=== PATIENT | female | born 1950 | race Caucasian/White ===

== ENCOUNTER 2019-01-03 20:27 | Inpatient (IN) | payer MEDICAID ==
[~2019-01-03] VITALS: Ht 157.5 cm; Wt 75.2 kg
[2019-01-03] MEDS ORDERED: SOD CHLORIDE 0.9% 1,000 ML IV STA (20:55)
[2019-01-03] MEDS ORDERED: ASPIRIN 325 MG TAB PO STA (20:55)
--- NOTE | 2019-01-03 21:00 | ERD ---
ER Documentation Chief Complaint Chief Complaint SLURRED SPEECH, LEFT LEG NUMBNESS/PAIN X'S 13 HOURS HPI This is a 68-year-old female here with strokelike symptoms. She said that she went to bed at midnight last night and that between the hours of midnight and 5 AM she kept feeling like she could not roll over in bed because her left side was not working correctly she said it felt weak and tingling. She said she tried to go to the bathroom around 6:30 AM and noticed the left side of her body felt heavy and she was dragging her left leg. She stayed in bed all day and did not tell her family about the symptoms. About 2 hours ago family noticed she was slurring her speech, however, she was not slurring throughout the day. Currently, the slurring is gone. She has no headache. She is complaining of left face tingling and left arm and leg tingling as well as weakness on the left side ROS All systems reviewed and are negative except as per history of present illness. FmHx Family History: No coronary disease Physical Exam Vitals Vital Signs Date Temp Pulse Resp B/P (MAP) Pulse Ox O2 O2 Flow FiO2 Time Delivery Rate 01/03/19 97.0 92 18 147/61 96 20:36 (89) Physical Exam Const: Well-developed, well-nourished Head: Atraumatic, normocephalic Eyes: Normal Conjunctiva, PERRLA, EOMI, normal sclera, no nystagmus ENT: Normal External Ears, Nose and Mouth, moist mucus membranes. Neck: Full range of motion. No meningismus, no lymphadenopathy. Resp: Clear to auscultation bilaterally, no wheezing, rhonchi, rales Cardio: Regular rate and rhythm, no murmurs, S1 S2 present Abd: Soft, non tender x 4, non distended. Normal bowel sounds, no guarding or rebound, no pulsitile abdominal masses or bruits Skin: No petechiae or rashes, no ecchymosis , no maculopapular rash Back: No midline or flank tenderness Ext: No cyanosis, or edema, FROM x 4, normal inspection, neurovascularly intact x 4 Neur: Awake and alert, STR 5/5 x 2, sensation intact x 2, left lower extremity strength is 3 out of 5 left upper extremity strength is 3 out of 5 Psych: Normal Mood and Affect Results 24 hrs Laboratory Tests Test 01/03/19 20:44 01/03/19 20:47 Bedside Glucose 268 mg/dL White Blood Count Pending Red Blood Count Pending Hemoglobin Pending Hematocrit Pending Mean Corpuscular Volume Pending Mean Corpuscular Hemoglobin Pending Mean Corpuscular Hemoglobin Concent Pending Red Cell Distribution Width Pending Platelet Count Pending Mean Platelet Volume Pending Current Medications Medications Dose Sig/Jessee Start Time Status Last (Trade) Ordered Route PRN Stop Time Admin Dose Reason Admin Sodium 1,000 ml @ Q1H STAT 01/03/19 DC 01/03/19 Chloride 1,000 mls/hr IV 20:55 21:06 01/03/19 21:54 Aspirin 325 mg ONCE STAT 01/03/19 DC 01/03/19 (Aspirin) PO 20:55 21:06 01/03/19 20:58 Procedures/MDM EKG: Rate/Rhythm: S rhythm with occasional PVCs, left axis deviation QRS, ST, QT: NORMAL [place], QRS, QT] Impression: Abnormal EKG Ordering MD: STEPHANIE JARRETT DO Location: E/R Room/Bed: PROCEDURE: CT Brain without contrast. CLINICAL INDICATION: Stroke. Altered level of consciousness. TECHNIQUE: A CT of the brain was performed on a multidetector CT scanner utilizing axial imaging from the skull base through the vertex without IV contrast. Multiplanar reformatted images were made. Images were reviewed on a PACS workstation. The CTDIvol is 30 no mGy and the DLP is the 634 mGycm. DICOM images are available. One or more of the following dose reduction techniques were utilized: 1.) Automated exposure control 2.) Adjustment of the mA +/- kV according to patient's size 3.) Use of iterative reconstruction technique. COMPARISON: None FINDINGS: There is moderate diffuse cerebral volume loss with sulcal and ventricular dilatation. No discrete extra-axial fluid collection or masses seen. Ventricles are in the midline and of normal configuration. There is periventricular white matter disease in both cerebral hemispheres with no associated mass effect. Noted is a chronic infarct in the right paracentral polyps. There is a chronic infarct enveloping the left putamen and external capsule extending into the left frontal periventricular white matter. Noted is an ill-defined region of attenuation involving marquez and subcortical white matter of the inferomedial right frontal lobe. This is compatible with an infarct of unknown chronicity. No other intra-axial masses or regions of abnormal attenuation are seen. There is no intracranial hemorrhage. There is minimal mucoperiosteal thickening in the sphenoid sinus. IMPRESSION: Atrophy. White matter disease compatible with chronic small vessel ischemia. Chronic infarcts right paracentral susu, left basal ganglia and external capsule. Infarct inferomedial right frontal lobe involving marquez and subcortical white matter of unknown chronicity. MRI with diffusion weighting could be performed to rule out acute infarct if clinically indicated. .Colton Lee MD, MD Date Time Electronically viewed and signed by .Colton Lee MD, MD on 01/03/2019 21:43 .A/ CC: STEPHANIE JARRETT DO [id number] Patient: SEBASTIAN FINE : 1950 Age: 68 Sex: F MR #: [id number] DOS: 01/03/192054 Ordering MD: STEPHANIE JARRETT DO Location: E/R Room/Bed: PROCEDURE: XR Chest. CLINICAL INDICATION: Patient experiencing possible Stroke TECHNIQUE: Single frontal view of the chest was obtained. COMPARISON: None available FINDINGS: The cardiomediastinal silhouette is normal size. Pulmonary vasculature is within normal limits. The lungs are clear. There is mild to moderate aortic calcification. No signs of pleural fluid or pneumothorax are seen. The osseous structures and soft tissues are unremarkable. IMPRESSION: No evidence for active cardiopulmonary disease. Mild to moderate aortic calcification. RPTAT: HBST .Joshua Schwartz MD, Date Time Electronically viewed and signed by .Joshua Schwartz MD, MD on 01/03/2019 21:49 .T/ CC: STEPHANIE JARRETT DO [id number] Patient has had a stroke and is not a TPA candidate because she is very far outside the window for TPA. Will admit the patient to panel for MRI in the morning for the workup the patient is clinically and hemodynamically stable Departure Diagnosis: Primary Impression: CVA (cerebral vascular accident) CVA mechanism: unspecified Qualified Codes: I63.9 - Cerebral infarction, unspecified Condition: Stable STEPHANIE JARRETT DO Jan 03, 2019 21:00
[2019-01-03] MEDS ORDERED: SOD CHLORIDE 0.9% 1,000 ML IV SCH (22:17)
[2019-01-03] MEDS ORDERED: ONDANSETRON 4 MG INJ IV PRN (22:30)
[2019-01-03] MEDS ORDERED: ACETAMINOPHEN 325 MG TAB PO PRN (22:30)
[2019-01-03 23:21] VITALS: PULSE 79
[2019-01-03] MEDS ORDERED: HYDROCODONE/APAP (5/325) TAB PO PRN (23:30)
[2019-01-03] MEDS ORDERED: NACL 0.9% 3 ML SYG IV SCH (23:30)
[2019-01-03] MEDS ORDERED: GLUCOSE GEL 15 GRAM TUBE BUCCAL PRN (23:45)
[2019-01-03] MEDS ORDERED: DEXTROSE 50% 50 ML SYRINGE IV PRN ×2 (23:45)
[2019-01-03] MEDS ORDERED: GLUCOSE GEL 15 GRAM TUBE PO PRN ×2 (23:45)
[2019-01-03] MEDS ORDERED: GLUCAGON 1 MG INJ IM PRN (23:45)
[2019-01-04] VITALS (12 sets, daily range): BP systolic 160–186; BP diastolic 70–81; PULSE 54–75; RESP 17–19; Ht 157.5 cm; Wt 75.2 kg
--- NOTE | 2019-01-04 00:20 | HP ---
Date/Time of Note Date/Time of Note DATE: 01/04/19 TIME: 00:14 Assessment/Plan VTE Prophylaxis Pharmacological prophylaxis: heparin Lines/Catheters IV Catheter Type (from Nrs): Saline Lock Assessment/Plan Hospital Course This is a 68-year-old female with a history of diabetes and tobacco use disorder who presents with left upper extremity and left lower extremity weakness which have now resolved. Symptoms are concerning for stroke/TIA -Will obtain MRI of the brain as well as carotid ultrasounds -Obtain echocardiogram -Consult neurology in the morning - Aspirin, statin - Head CT shows evidence of prior infarcts Diabetes type 2: -Basal bolus insulin Tobacco use disorder: -Counseled on cessation Result Diagram: 01/03/19204601/03/192046 Results 24hrs Laboratory Tests Test 01/03/19 20:44 01/03/19 20:47 Bedside Glucose 268 H White Blood Count 9.0 Red Blood Count 5.10 Hemoglobin 14.5 Hematocrit 44.9 Mean Corpuscular Volume 88.0 Mean Corpuscular Hemoglobin 28.4 L Mean Corpuscular Hemoglobin Concent 32.3 Red Cell Distribution Width 12.9 Platelet Count 261 Mean Platelet Volume 11.7 H Immature Granulocytes % 0.400 Neutrophils % 67.0 Lymphocytes % 21.5 Monocytes % 8.2 Eosinophils % 2.3 Basophils % 0.6 Nucleated Red Blood Cells % 0.0 Immature Granulocytes # 0.040 H Neutrophils # 6.0 Lymphocytes # 1.9 Monocytes # 0.7 Eosinophils # 0.2 Basophils # 0.1 Nucleated Red Blood Cells # 0.0 Prothrombin Time 12.3 Prothrombin Time Ratio 1.0 INR International Normalized Ratio 0.90 Activated Partial Thromboplast Time 24.3 Sodium Level 141 Potassium Level 3.9 Chloride Level 104 Carbon Dioxide Level 31 Anion Gap 6 Blood Urea Nitrogen 15 Creatinine 0.70 Est Glomerular Filtrat Rate mL/min > 60 Glucose Level 241 H Hemoglobin A1c 7.9 H Calcium Level 9.7 Total Bilirubin 0.0 L Direct Bilirubin 0.00 Indirect Bilirubin 0.0 Aspartate Amino Transf (AST/SGOT) 31 Alanine Aminotransferase (ALT/SGPT) 34 Alkaline Phosphatase 104 Troponin I < 0.012 Total Protein 7.4 Albumin 4.0 Globulin 3.40 H Albumin/Globulin Ratio 1.17 Triglycerides Level 198 H Cholesterol Level 170 LDL Cholesterol, Calculated 87 HDL Cholesterol 43 Cholesterol/HDL Ratio 3.9 HPI/ROS Admit Date/Time Admit Date/Time Jan 03, 2019 at 22:18 Hx of Present Illness 68 yo female with h/o heavy tobacco use, diabetes, hypertension who presents with L sided weakness Patient was in usual state of health until today. She says about 6 AM she lost the ability to move her left arm and left leg. Her leg was tremulous and shaky she said. She was unable to walk. She did not seek care and apparently did not tell her family about the symptoms. Her's son at bedside says that when he found her he noticed that her speech was slurring. Left arm and left leg still unable to move. Brought to the ER where she was outside of the stroke window. By the time I saw her she says that her symptoms have now resolved. She is now able to fully move her left arm and left leg and has no residual deficits PMH/Family/Social Past Medical History Medical History: diabetes Medications Current Medications Sodium Chloride 1,000 ml @ 80 mls/hr [id number] IV ; Start 01/03/19 at 22:17; Stop 01/04/19 at 10:46 Ondansetron HCl (Zofran Inj) 4 mg ER BRIDGE PRN IV NAUSEA/VOMITING; Start 01/03/19 at 22:30; Stop 01/04/19 at 22:29 Acetaminophen (Tylenol Tab) 650 mg ER BRIDGE PRN PO .MILD PAIN 1-3 OR TEMP; Start 01/03/19 at 22:30; Stop 01/04/19 at 22:29 IV Flush (NS 3 ml) 3 ml PER PROTOCOL IV ; Start 01/03/19 at 23:30 Acetaminophen/ Hydrocodone Bitart ([place] (5/325)) 2 tab Q6H PRN PO .SEVERE PAIN 7-10; Start 01/03/19 at 23:30 Enoxaparin Sodium (Lovenox) 30 mg DAILY SC ; Start 01/04/19 at 09:00 Diagnostic Test (Pha) (Accu-Chek) 1 XX ; Start 01/04/19 at 02:00 Insulin Glargine (Lantus) 16 units DAILY@2000 SC ; Start 01/04/19 at 20:00 Insulin Aspart (Novolog Insulin Pen) 4 unit WITH MEALS SC ; Start 01/04/19 at 07:55 Insulin Aspart (Novolog Insulin Pen) NOVOLOG *MILD* ALGORITHM WITH MEALS BEDTIME SC ; Start 01/04/19 at 07:55 Miscellaneous Information 1 ea NOTE XX ; Start 01/03/19 at 23:45 Glucose (Glutose) 15 gm Q15M PRN PO DECREASED GLUCOSE; Start 01/03/19 at 23:45 Glucose (Glutose) 22.5 gm Q15M PRN PO DECREASED GLUCOSE; Start 01/03/19 at 23:45 Dextrose (D50w Syringe) 25 ml Q15M PRN IV DECREASED GLUCOSE; Start 01/03/19 at 23:45 Dextrose (D50w Syringe) 50 ml Q15M PRN IV DECREASED GLUCOSE; Start 01/03/19 at 23:45 Glucagon (Glucagen) 1 mg Q15M PRN IM DECREASED GLUCOSE; Start 01/03/19 at 23:45 Glucose (Glutose) 15 gm Q15M PRN BUCCAL DECREASED GLUCOSE; Start 01/03/19 at 23:45 Coded Allergies: No Known Allergy (Unverified , 01/03/19) Past Surgical History Past Surgical Hx: no surgical history Family History Significant Family History: no pertinent family hx Social History Alcohol Use: none Smoking Status: Current every day smoker Drug Use: none Exam/Review of Systems Vital Signs Vitals Vital Signs Date Temp Pulse Resp B/P (MAP) Pulse Ox O2 O2 Flow FiO2 Time Delivery Rate 01/04/19 75 00:00 01/03/19 97.5 22 163/71 98 Room Air 23:03 (101) EKG: Normal sinus rhythm with LVH Exam Exam Alert and oriented Cranial nerves II through XII intact Strength intact throughout Sensation intact throughout Regular rate and rhythm Breathing comfortably Extremities warm without edema FABIAN DSOUZA MD Jan 04, 2019 00:20
[2019-01-04] MEDS: ACCU-CHEK XX SCH (03:11)
[2019-01-04] MEDS: INSULIN ASPART [NOVOLOG] 3 ML PEN SC SCH ×7 (08:12→21:30)
[2019-01-04] MEDS: ASPIRIN 81 MG TAB PO SCH (08:13)
[2019-01-04] MEDS: ENOXAPARIN 30 MG/0.3 ML SYG SC SCH (08:13)
--- NOTE | 2019-01-04 14:21 | PN ---
Date/Time of Note Date/Time of Note DATE: 01/04/19 TIME: 14:20 Assessment/Plan VTE Prophylaxis Risk score (from Nsg)>0 risk: 4 SCD applied (from Nsg): Yes Pharmacological prophylaxis: LMWH Lines/Catheters IV Catheter Type (from Nrsg): Saline Lock Urinary Cath still in place: No Assessment/Plan Hospital Course SUBJECTIVE: Denies any headache. OBJECTIVE: Physical Exam General: Adequately build 68 year-old female lying in bed in no apparent distress. HEENT: Normocephalic, atraumatic. Eyes: Anicteric sclerae, conjunctivae clear. ENT: Nasal septum midline, oral mucosa moist. Neck supple, no JVD noticed. Respiratory: Bilaterally clear breath sounds. No use of accessory muscles of respiration. No adventitious breath sounds. Cardiovascular: S1, S2 heard. Regular rate and rhythm. Abdomen: Soft, nontender, and nondistended. Bowel sounds positive in all 4 quadrants. Genitourinary: Deferred. Extremities: No cyanosis, no clubbing, no edema. Peripheral pulses palpable. Neurologic: The patient is awake, alert, and oriented. Skin: Normal skin turgor. No skin rashes. Labs & Vitals per chart ASSESSMENT & PLAN 68 year old female with comorbidities including HTN, type II DM, and nicotine use who came to the ER with chief complaint of slurred speech and left leg numbness and was admitted to inpatient setting for further treatment and eval uation. 1. Acute/early subacute right [place] non hemorrhagic ischemic infarct in the anterior medial frontal lobe. -Continue aspirin and statins. -PT/OT/ST evaluation. -Being followed by neurology. 2. Hypertension. -Continue antihypertensives. 3. DM type 2. .-Continue SSI with premeal and basal insulin. -HgB A1C 7.9. 4. Dyslipidemia. -Continue statins. 5. Nicotine use. -Cessation will be advised. 6. Fluids, electrolytes, and nutrition. -Low carbohydrate diet. 7. DVT prophylaxis. -Subcutaneous Lovenox. 8. Plan. -Continue aspirin and statins -Continue physical therapy and occupational therapy. The patient was seen in collaboration with Dr. Barrett. Result Diagram: 01/04/19 0551 01/04/19 0551 Results 24hrs Laboratory Tests Test 01/03/19 20:44 01/03/19 20:47 01/04/19 03:45 01/04/19 05:51 Bedside Glucose 268 H 214 White Blood Count 9.0 7.7 Red Blood Count 5.10 4.44 Hemoglobin 14.5 12.7 Hematocrit 44.9 39.5 Mean Corpuscular 88.0 89.0 Volume Mean Corpuscular 28.4 L 28.6 L Hemoglobin Mean Corpuscular 32.3 32.2 Hemoglobin Concent Red Cell 12.9 12.8 Distribution Width Platelet Count 261 216 Mean Platelet Volume 11.7 H 11.3 H Immature 0.400 0.300 Granulocytes % Neutrophils % 67.0 58.2 Lymphocytes % 21.5 27.4 Monocytes % 8.2 9.7 Eosinophils % 2.3 3.8 Basophils % 0.6 0.6 Nucleated Red Blood 0.0 0.0 Cells % Immature 0.040 H 0.020 Granulocytes # Neutrophils # 6.0 4.5 Lymphocytes # 1.9 2.1 Monocytes # 0.7 0.8 Eosinophils # 0.2 0.3 Basophils # 0.1 0.1 Nucleated Red Blood 0.0 0.0 Cells # Prothrombin Time 12.3 Prothrombin Time 1.0 Ratio INR International 0.90 Normalized Ratio Activated 24.3 Partial Thromboplast Time Sodium Level 141 140 Potassium Level 3.9 3.8 Chloride Level 104 103 Carbon Dioxide Level 31 24 Anion Gap 6 13 # Blood Urea Nitrogen 15 11 Creatinine 0.70 0.57 Est Glomerular > 60 > 60 Filtrat Rate mL/min Glucose Level 241 H 212 Hemoglobin A1c 7.9 H 7.8 H Calcium Level 9.7 8.7 Total Bilirubin 0.0 L 0.2 Direct Bilirubin 0.00 0.00 Indirect Bilirubin 0.0 0.2 Aspartate Amino 31 18 Transf (AST/SGOT) Alanine 34 28 Aminotransferase (AL T/SGPT) Alkaline Phosphatase 104 82 Troponin I < 0.012 Total Protein 7.4 6.5 Albumin 4.0 3.4 Globulin 3.40 H 3.10 Albumin/Globulin 1.17 1.09 Ratio Triglycerides Level 198 H Cholesterol Level 170 LDL Cholesterol, 87 Calculated HDL Cholesterol 43 Cholesterol/HDL 3.9 Ratio Test 01/04/19 08:04 01/04/19 10:35 01/04/19 12:28 Bedside Glucose 201 149 Lab Scanned Report LAB Exam/Review of Systems Exam Vitals Vital Signs Date Temp Pulse Resp B/P (MAP) Pulse Ox O2 O2 Flow FiO2 Time Delivery Rate 01/04/19 64 12:33 01/04/19 97.6 19 161/72 96 12:02 (101) 01/04/19 Room Air 03:50 Intake and Output 01/03/19 01/03/19 01/04/19 1515:00 23:00 07:00 IntakeIntake Total 300 ml BalanceBalance 300 ml Results Results 24hrs Laboratory Tests Test 01/03/19 20:44 01/03/19 20:47 01/04/19 03:45 01/04/19 05:51 Bedside Glucose 268 H 214 White Blood Count 9.0 7.7 Red Blood Count 5.10 4.44 Hemoglobin 14.5 12.7 Hematocrit 44.9 39.5 Mean Corpuscular 88.0 89.0 Volume Mean Corpuscular 28.4 L 28.6 L Hemoglobin Mean Corpuscular 32.3 32.2 Hemoglobin Concent Red Cell 12.9 12.8 Distribution Width Platelet Count 261 216 Mean Platelet Volume 11.7 H 11.3 H Immature 0.400 0.300 Granulocytes % Neutrophils % 67.0 58.2 Lymphocytes % 21.5 27.4 Monocytes % 8.2 9.7 Eosinophils % 2.3 3.8 Basophils % 0.6 0.6 Nucleated Red Blood 0.0 0.0 Cells % Immature 0.040 H 0.020 Granulocytes # Neutrophils # 6.0 4.5 Lymphocytes # 1.9 2.1 Monocytes # 0.7 0.8 Eosinophils # 0.2 0.3 Basophils # 0.1 0.1 Nucleated Red Blood 0.0 0.0 Cells # Prothrombin Time 12.3 Prothrombin Time 1.0 Ratio INR International 0.90 Normalized Ratio Activated 24.3 Partial Thromboplast Time Sodium Level 141 140 Potassium Level 3.9 3.8 Chloride Level 104 103 Carbon Dioxide Level 31 24 Anion Gap 6 13 # Blood Urea Nitrogen 15 11 Creatinine 0.70 0.57 Est Glomerular > 60 > 60 Filtrat Rate mL/min Glucose Level 241 H 212 Hemoglobin A1c 7.9 H 7.8 H Calcium Level 9.7 8.7 Total Bilirubin 0.0 L 0.2 Direct Bilirubin 0.00 0.00 Indirect Bilirubin 0.0 0.2 Aspartate Amino 31 18 Transf (AST/SGOT) Alanine 34 28 Aminotransferase (AL T/SGPT) Alkaline Phosphatase 104 82 Troponin I < 0.012 Total Protein 7.4 6.5 Albumin 4.0 3.4 Globulin 3.40 H 3.10 Albumin/Globulin 1.17 1.09 Ratio Triglycerides Level 198 H Cholesterol Level 170 LDL Cholesterol, 87 Calculated HDL Cholesterol 43 Cholesterol/HDL 3.9 Ratio Test 01/04/19 08:04 01/04/19 10:35 01/04/19 12:28 Bedside Glucose 201 149 Lab Scanned Report LAB Medications Medication Current Medications Ondansetron HCl (Zofran Inj) 4 mg ER BRIDGE PRN IV NAUSEA/VOMITING Last administered on 01/04/19at 00:44; Admin Dose 4 MG; Start 01/03/19 at 22:30; Stop 01/04/19 at 22:29 Acetaminophen (Tylenol Tab) 650 mg ER BRIDGE PRN PO .MILD PAIN 1-3 OR TEMP; Start 01/03/19 at 22:30; Stop 01/04/19 at 22:29 IV Flush (NS 3 ml) 3 ml PER PROTOCOL IV ; Start 01/03/19 at 23:30 Acetaminophen/ Hydrocodone Bitart ([place] (5/325)) 2 tab Q6H PRN PO .SEVERE PAIN 7-10; Start 01/03/19 at 23:30 Enoxaparin Sodium (Lovenox) 30 mg DAILY SC Last administered on 01/04/19at 08:13 ; Admin Dose 30 MG; Start 01/04/19 at 09:00 Diagnostic Test (Pha) (Accu-Chek) 1 ea 02 XX ; Start 01/04/19 at 02:00 Insulin Glargine (Lantus) 16 units DAILY@2000 SC ; Start 01/04/19 at 20:00 Insulin Aspart (Novolog Insulin Pen) 4 unit WITH MEALS SC Last administered on 01/04/19at 12:31; Admin Dose 4 UNIT; Start 01/04/19 at 07:55 Insulin Aspart (Novolog Insulin Pen) NOVOLOG *MILD* ALGORITHM WITH MEALS BEDTIME SC Last administered on 01/04/19at 12:30; Admin Dose 1 UNIT; Start 01/04/19 at 07:55 Miscellaneous Information 1 ea NOTE XX ; Start 01/03/19 at 23:45 Glucose (Glutose) 15 gm Q15M PRN PO DECREASED GLUCOSE; Start 01/03/19 at 23:45 Glucose (Glutose) 22.5 gm Q15M PRN PO DECREASED GLUCOSE; Start 01/03/19 at 23:45 Dextrose (D50w Syringe) 25 ml Q15M PRN IV DECREASED GLUCOSE; Start 01/03/19 at 23:45 Dextrose (D50w Syringe) 50 ml Q15M PRN IV DECREASED GLUCOSE; Start 01/03/19 at 23:45 Glucagon (Glucagen) 1 mg Q15M PRN IM DECREASED GLUCOSE; Start 01/03/19 at 23:45 Glucose (Glutose) 15 gm Q15M PRN BUCCAL DECREASED GLUCOSE; Start 01/03/19 at 23:45 Aspirin (Aspirin) 81 mg DAILY PO Last administered on 01/04/19at 08:13; Admin Dose 81 MG; Start 01/04/19 at 09:00 Atorvastatin Calcium (Lipitor) 80 mg HS PO ; Start 01/04/19 at 21:00 SLAVA PARKER NP Jan 04, 2019 14:21
--- NOTE | 2019-01-04 15:40 | CONS ---
Assessment/Plan Assessment/Plan Hospital Course 68 F c/ Hx of tobacco dependence and DM2, who presents for evaluation of left leg > arm weakness...for which neurology is consulted. MRI brain confirmed an acute R AKBAR infarction.. CUS was without significant stenosis P: Add echocardiogram.. Agree w/ asa/lipitor daily for secondary prevention Await ESR, RPR, UDS... PT/OT/ST as necessary Smoking cessation Permissive HTN Will follow Consultation Date/Type/Reason Admit Date/Time Jan 03, 2019 at 22:18 Type of Consult Neurology Reason for Consultation stroke Requesting Provider: FABIAN DSOUZA MD Date/Time of Note DATE: 01/04/19 TIME: 15:29 Hx of Present Illness 68 yo female with h/o heavy tobacco use, diabetes, hypertension who presents with L sided weakness Patient was in usual state of health until today. She says about 6 AM she lost the ability to move her left arm and left leg. Her leg was tremulous and shaky she said. She was unable to walk. She did not seek care and apparently did not tell her family about the symptoms. Her son at bedside says that when he found her he noticed that her speech was slurring. Left arm and left leg still unable to move. Brought to the ER where she was outside of the stroke window. By the time I saw her she says that her symptoms have now resolved. She is now able to fully move her left arm and left leg and has no residual deficits 12 PT ROS ow neg Exam/Review of Systems Exam Vitals Vital Signs Date Temp Pulse Resp B/P (MAP) Pulse Ox O2 O2 Flow FiO2 Time Delivery Rate 01/04/19 64 12:33 01/04/19 97.6 19 161/72 96 12:02 (101) 01/04/19 Room Air 03:50 Intake and Output 01/03/19 01/03/19 01/04/19 1515:00 23:00 07:00 IntakeIntake Total 300 ml BalanceBalance 300 ml Exam PE: Gen Appearance: No Apparent Distress HEENT: Normocephalic Cardiovascular: Regular rate Abdomen: Soft Extremities: Dry NE: The patient was alert and oriented. Language was normal. Fund of knowledge was normal. Speech was mildly dysarthric. Pupils were equal and reactive to light. There was no afferent pupillary defect. Visual nixon were normal. Funduscopic examination was limited. no nystagmus. Facial sensation was normal. Face was symmetric with normal strength. Hearing was intact. Palate movements were normal. Neck strength was normal. There was normal tongue bulk and speed of movement. Tone was normal. Muscle bulk was normal. I did not see fasciculations. Left leg was mild-moderately weak. Vibration sensation was normal. Temperature and pinprick sensation was normal. Rapid alternating movements were normal. There was no dysmetria. There was no intention tremor. Gait was deferred due to bedrest. Arm and leg reflexes were asymmetric. Shafer's sign was absent. Plantar responses were difficult to assess. Results Result Diagram: 01/04/19 0551 01/04/19 0551 Results 24hrs Laboratory Tests Test 01/03/19 20:44 01/03/19 20:47 01/04/19 03:45 01/04/19 05:51 Bedside Glucose 268 H 214 White Blood Count 9.0 7.7 Red Blood Count 5.10 4.44 Hemoglobin 14.5 12.7 Hematocrit 44.9 39.5 Mean Corpuscular 88.0 89.0 Volume Mean Corpuscular 28.4 L 28.6 L Hemoglobin Mean Corpuscular 32.3 32.2 Hemoglobin Concent Red Cell 12.9 12.8 Distribution Width Platelet Count 261 216 Mean Platelet Volume 11.7 H 11.3 H Immature 0.400 0.300 Granulocytes % Neutrophils % 67.0 58.2 Lymphocytes % 21.5 27.4 Monocytes % 8.2 9.7 Eosinophils % 2.3 3.8 Basophils % 0.6 0.6 Nucleated Red Blood 0.0 0.0 Cells % Immature 0.040 H 0.020 Granulocytes # Neutrophils # 6.0 4.5 Lymphocytes # 1.9 2.1 Monocytes # 0.7 0.8 Eosinophils # 0.2 0.3 Basophils # 0.1 0.1 Nucleated Red Blood 0.0 0.0 Cells # Prothrombin Time 12.3 Prothrombin Time 1.0 Ratio INR International 0.90 Normalized Ratio Activated 24.3 Partial Thromboplast Time Sodium Level 141 140 Potassium Level 3.9 3.8 Chloride Level 104 103 Carbon Dioxide Level 31 24 Anion Gap 6 13 # Blood Urea Nitrogen 15 11 Creatinine 0.70 0.57 Est Glomerular > 60 > 60 Filtrat Rate mL/min Glucose Level 241 H 212 Hemoglobin A1c 7.9 H 7.8 H Calcium Level 9.7 8.7 Total Bilirubin 0.0 L 0.2 Direct Bilirubin 0.00 0.00 Indirect Bilirubin 0.0 0.2 Aspartate Amino 31 18 Transf (AST/SGOT) Alanine 34 28 Aminotransferase (AL T/SGPT) Alkaline Phosphatase 104 82 Troponin I < 0.012 Total Protein 7.4 6.5 Albumin 4.0 3.4 Globulin 3.40 H 3.10 Albumin/Globulin 1.17 1.09 Ratio Triglycerides Level 198 H Cholesterol Level 170 LDL Cholesterol, 87 Calculated HDL Cholesterol 43 Cholesterol/HDL 3.9 Ratio Test 01/04/19 08:04 01/04/19 10:35 01/04/19 12:28 Bedside Glucose 201 149 Lab Scanned Report LAB Medications Medication Current Medications Ondansetron HCl (Zofran Inj) 4 mg ER BRIDGE PRN IV NAUSEA/VOMITING Last administered on 01/04/19at 00:44; Admin Dose 4 MG; Start 01/03/19 at 22:30; Stop 01/04/19 at 22:29 Acetaminophen (Tylenol Tab) 650 mg ER BRIDGE PRN PO .MILD PAIN 1-3 OR TEMP; Start 01/03/19 at 22:30; Stop 01/04/19 at 22:29 IV Flush (NS 3 ml) 3 ml PER PROTOCOL IV ; Start 01/03/19 at 23:30 Acetaminophen/ Hydrocodone Bitart ([place] (5/325)) 2 tab Q6H PRN PO .SEVERE PAIN 7-10; Start 01/03/19 at 23:30 Enoxaparin Sodium (Lovenox) 30 mg DAILY SC Last administered on 01/04/19at 08:13; Admin Dose 30 MG; Start 01/04/19 at 09:00 Diagnostic Test (Pha) (Accu-Chek) 1 ea 02 XX ; Start 01/04/19 at 02:00 Insulin Glargine (Lantus) 16 units DAILY@2000 SC ; Start 01/04/19 at 20:00 Insulin Aspart (Novolog Insulin Pen) 4 unit WITH MEALS SC Last administered on 01/04/19at 12:31; Admin Dose 4 UNIT; Start 01/04/19 at 07:55 Insulin Aspart (Novolog Insulin Pen) NOVOLOG *MILD* ALGORITHM WITH MEALS BEDTIME SC Last administered on 01/04/19at 12:30; Admin Dose 1 UNIT; Start 01/04/19 at 07:55 Miscellaneous Information 1 ea NOTE XX ; Start 01/03/19 at 23:45 Glucose (Glutose) 15 gm Q15M PRN PO DECREASED GLUCOSE; Start 01/03/19 at 23:45 Glucose (Glutose) 22.5 gm Q15M PRN PO DECREASED GLUCOSE; Start 01/03/19 at 23:45 Dextrose (D50w Syringe) 25 ml Q15M PRN IV DECREASED GLUCOSE; Start 01/03/19 at 23:45 Dextrose (D50w Syringe) 50 ml Q15M PRN IV DECREASED GLUCOSE; Start 01/03/19 at 23:45 Glucagon (Glucagen) 1 mg Q15M PRN IM DECREASED GLUCOSE; Start 01/03/19 at 23:45 Glucose (Glutose) 15 gm Q15M PRN BUCCAL DECREASED GLUCOSE; Start 01/03/19 at 23:45 Aspirin (Aspirin) 81 mg DAILY PO Last administered on 01/04/19at 08:13; Admin Dose 81 MG; Start 01/04/19 at 09:00 Atorvastatin Calcium (Lipitor) 80 mg HS PO ; Start 01/04/19 at 21:00 Past Medical History Medical History: diabetes Medications Current Medications Ondansetron HCl (Zofran Inj) 4 mg ER BRIDGE PRN IV NAUSEA/VOMITING Last administered on 01/04/19at 00:44; Admin Dose 4 MG; Start 01/03/19 at 22:30; Stop 01/04/19 at 22:29 Acetaminophen (Tylenol Tab) 650 mg ER BRIDGE PRN PO .MILD PAIN 1-3 OR TEMP; Start 01/03/19 at 22:30; Stop 01/04/19 at 22:29 IV Flush (NS 3 ml) 3 ml PER PROTOCOL IV ; Start 01/03/19 at 23:30 Acetaminophen/ Hydrocodone Bitart ([place] (5/325)) 2 tab Q6H PRN PO .SEVERE PAIN 7-10; Start 01/03/19 at 23:30 Enoxaparin Sodium (Lovenox) 30 mg DAILY SC Last administered on 01/04/19at 0 8:13; Admin Dose 30 MG; Start 01/04/19 at 09:00 Diagnostic Test (Pha) (Accu-Chek) 1 ea 02 XX ; Start 01/04/19 at 02:00 Insulin Glargine (Lantus) 16 units DAILY@2000 SC ; Start 01/04/19 at 20:00 Insulin Aspart (Novolog Insulin Pen) 4 unit WITH MEALS SC Last administered on 01/04/19at 12:31; Admin Dose 4 UNIT; Start 01/04/19 at 07:55 Insulin Aspart (Novolog Insulin Pen) NOVOLOG *MILD* ALGORITHM WITH MEALS BEDTIME SC Last administered on 01/04/19at 12:30; Admin Dose 1 UNIT; Start 01/04/19 at 07:55 Miscellaneous Information 1 ea NOTE XX ; Start 01/03/19 at 23:45 Glucose (Glutose) 15 gm Q15M PRN PO DECREASED GLUCOSE; Start 01/03/19 at 23:45 Glucose (Glutose) 22.5 gm Q15M PRN PO DECREASED GLUCOSE; Start 01/03/19 at 23:45 Dextrose (D50w Syringe) 25 ml Q15M PRN IV DECREASED GLUCOSE; Start 01/03/19 at 23:45 Dextrose (D50w Syringe) 50 ml Q15M PRN IV DECREASED GLUCOSE; Start 01/03/19 at 23:45 Glucagon (Glucagen) 1 mg Q15M PRN IM DECREASED GLUCOSE; Start 01/03/19 at 23:45 Glucose (Glutose) 15 gm Q15M PRN BUCCAL DECREASED GLUCOSE; Start 01/03/19 at 23:45 Aspirin (Aspirin) 81 mg DAILY PO Last administered on 01/04/19at 08:13; Admin Dose 81 MG; Start 01/04/19 at 09:00 Atorvastatin Calcium (Lipitor) 80 mg HS PO ; Start 01/04/19 at 21:00 Allergies: Coded Allergies: No Known Allergy (Unverified , 01/03/19) Past Surgical History Past Surgical Hx: no surgical history Social History Alcohol Use: none Smoking Status: Current every day smoker Drug Use: none ELMER MICHAEL Jan 04, 2019 15:40
--- NOTE | 2019-01-04 17:03 | RADRPT ---
Echocardiogram Report Patient Name: SEBASTIAN FINEPatient ID: [id number] : 1950 (68y 3m)Study Date: 01/04/2019 9:27:04 AM Gender: FAccession #: [id number] Tech: Romeo Esquivel [facility] Location: [facility] Ref.Physician: FABIAN DSOUZA Height(Cm): BSA: Weight(Kg): Quality: AdequateAccount #: Procedures: Echocardiographic Report: Transthoracic echocardiogram with complete 2D, M-Mode, and doppler examination. Indications: Evaluate Left Ventricular function. Measurements: 2D/M Mode Doppler Measurement Value Normal Range Measurement Value Normal Range LVIDd 2D 4.3 [ 3.8 - 5.2 ] cm AV Peak Mynor 1.7 [ 100.0 - 170.0 ] cm/sec LVIDs 2D 3.0 [ 2.2 - 3.5 ] cm AV Peak PG 11.0 [ 2.0 - 9.0 ] mmHg LVPWd 2D 1.1 [ 0.6 - 0.9 ] cm LVOT Peak Mynor 0.9 [ 70.0 - 110.0 ] cm/sec IVSd 2D 1.0 [ 0.6 - 0.9 ] cm LVOT Peak PG 3.0 [ 2.0 - 6.0 ] mmHg IVS/LVPW 2D 1.0 ratio MV E Peak Mynor 0.9 [ 60.0 - 130.0 ] cm/sec AoR Diam 2D 2.9 [ 2.3 - 3.1 ] cm MV A Peak Mynor 1.3 [ 100.0 - 120.0 ] cm/sec LA/Ao 2D 1 ratio MV E/A 0.7 [ 0.8 - 1.5 ] ratio LA Dimen 2D 3.8 [ 2.7 - 3.8 ] cm MV Decel Time 190 [ 104 - 258 ] msec Lat E` Mynor 0.1 [ 10.0 - 15.0 ] cm/sec Med E` Mynor 0.1 cm/sec MV E/A 0.7 [ 0.8 - 1.5 ] ratio TR Peak Mynor 2.8 [ 100.0 - 280.0 ] cm/sec TR Peak PG 31.0 mmHg RVSP 39.0 [ 10.0 - 36.0 ] mmHg Findings: Left Ventricle: Normal left ventricular systolic function. Normal left ventricular cavity size. Normal left ventricular wall thickness. Ejection fraction is visually estimated at 55-60 %. Tissue Doppler/Mitral Doppler indices are consistent with impaired relaxation (Stage I diastolic dysfunction). Right Ventricle: Normal right ventricular size. Normal right ventricular systolic function. Left Atrium: The left atrium is normal in size. Right Atrium: The right atrium is normal in size. Mitral Valve: Mild mitral leaflet calcification. Mild mitral annular calcification. Trace mitral regurgitation. Aortic Valve: No significant aortic stenosis or insufficiency. Aortic cusps appear mildly calcified. Tricuspid Valve: Normal appearance of the tricuspid valve. Estimated peak PA systolic pressure 39 mmHg. There is mild tricuspid regurgitation. Pulmonic Valve: Pulmonic valve not well visualized. Pericardium: Trivial pericardial effusion. Aorta: Normal aortic root. IVC: Dilated IVC with respiratory collapse consistent with elevated right atrial pressure. Conclusions: Normal left ventricular systolic function. Normal left ventricular cavity size. Normal left ventricular wall thickness. Ejection fraction is visually estimated at 55-60 %. Tissue Doppler/Mitral Doppler indices are consistent with impaired relaxation (Stage I diastolic dysfunction). ). Mild mitral leaflet calcification. Mild mitral annular calcification. Trace mitral regurgitation. Normal appearance of the tricuspid valve. Estimated peak PA systolic pressure 39 mmHg. There is mild tricuspid regurgitation. Trivial pericardial effusion. Electronically Signed By: Anish Vo 2019-01-04 17:02:09 PST
[2019-01-04] MEDS ORDERED: hydrALAzine 20 MG INJ IV PRN (18:00)
[2019-01-04] MEDS: ATORVASTATIN 80 MG TAB PO SCH (21:25)
[2019-01-04] MEDS: INSULIN GLARGINE [LANTus] (100 UNITS/ML) SYG SC SCH (21:39)
[2019-01-05] VITALS (14 sets, daily range): BP systolic 146–182; BP diastolic 69–83; PULSE 61–102; RESP 16–20
[2019-01-05] MEDS: ACCU-CHEK XX SCH (02:39)
[2019-01-05] MEDS ORDERED: morphine 2 MG INJ IV STA (07:49)
[2019-01-05] MEDS ORDERED: NITROGLYCERIN (SL) 0.4 MG TAB SL PRN (08:00)
[2019-01-05] MEDS: INSULIN ASPART [NOVOLOG] 3 ML PEN SC SCH ×7 (08:40→20:28)
[2019-01-05] MEDS: ASPIRIN 81 MG TAB PO SCH (09:17)
[2019-01-05] MEDS: ENOXAPARIN 30 MG/0.3 ML SYG SC SCH (10:08)
[2019-01-05] MEDS ORDERED: ATOR-2 PO (13:58)
[2019-01-05] MEDS ORDERED: LISI-313 PO (13:58)
[2019-01-05] MEDS ORDERED: METF-849 PO (13:58)
[2019-01-05] MEDS ORDERED: ASPI-831 PO (13:58)
--- NOTE | 2019-01-05 14:02 | PDOCDIS ---
Discharge Instructions CONDITION [id number] Patient Condition: [id number] Stable OTHER ORDERS: Other Orders: 1. Follow a low-cholesterol, low carbohydrate diet. 2. Take medications as per prescription. 3. Avoid using tobacco. 4. Please follow-up with your primary care physician in 2 weeks. If you do not have a primary care physician, please call Dr. Moncho Musa's office. 5. Please go to the nearest emergency room if you have any chest pain, focal weakness, speech disturbances, or any other unusual signs/symptoms. 6. Resume activities as tolerated. SLAVA PARKER NP Jan 05, 2019 14:02
--- NOTE | 2019-01-05 14:35 | CONS ---
Assessment/Plan Assessment/Plan Hospital Course 68 F c/ Hx of tobacco dependence and DM2, who presents for evaluation of left leg > arm weakness...for which neurology is consulted. MRI brain confirmed an acute R AKBAR infarction.. CUS was without significant stenosis Echo is unrevealing. P: Await RPR, UDS Cont asa/lipitor daily for secondary prevention PT/OT/ST as necessary Smoking cessation Permissive HTN Will follow Consultation Date/Type/Reason Admit Date/Time Jan 03, 2019 at 22:18 Type of Consult Neurology Requesting Provider: FABIAN DSOUZA MD Date/Time of Note DATE: 01/05/19 TIME: 14:35 24 HR Interval Summary Free Text/Dictation Continues telemetry monitoring. Pt states that her left leg is improving today. Is awaiting discharge. Exam Vital Signs Vitals Vital Signs Date Temp Pulse Resp B/P (MAP) Pulse Ox O2 O2 Flow FiO2 Time Delivery Rate 01/05/19 69 12:15 01/05/19 98.5 16 159/69 98 Room Air 11:07 (99) Intake and Output 01/04/19 01/04/19 01/05/19 1414:59 22:59 06:59 IntakeIntake Total 600 ml 350 ml BalanceBalance 600 ml 350 ml Exam PE: Gen Appearance: No Apparent Distress HEENT: Normocephalic Cardiovascular: Regular rate Abdomen: Soft Extremities: Dry NE: The patient was alert and oriented. Language was normal. Fund of knowledge was normal. Speech was mildly dysarthric, though improved. Pupils were equal and reactive to light. There was no afferent pupillary defect. Visual nixon were normal. Funduscopic examination was limited. no nystagmus. Facial sensation was normal. Face was symmetric with normal strength. Hearing was intact. Palate movements were normal. Neck strength was normal. There was normal tongue bulk and speed of movement. Tone was normal. Muscle bulk was normal. I did not see fasciculations. Left leg was mildly weak. Vibration sensation was normal. Temperature and pinprick sensation was normal. Rapid alternating movements were normal. There was no dysmetria. There was no intention tremor. Gait was deferred due to bedrest. Arm and leg reflexes were asymmetric. Shafer's sign was absent. Plantar responses were difficult to assess. MONTRELL BURNETT NP Jan 05, 2019 14:35
--- NOTE | 2019-01-05 16:18 | PN ---
Date/Time of Note Date/Time of Note DATE: 01/05/19 TIME: 16:15 Assessment/Plan VTE Prophylaxis Risk score (from Ns)>0 risk: 5 SCD applied (from Nsg): Yes Pharmacological prophylaxis: LMWH Lines/Catheters IV Catheter Type (from Nrs): Saline Lock Urinary Cath still in place: No Assessment/Plan Hospital Course SUBJECTIVE: Denies any headache. The patient had more significantly impaired balance as compared to yesterday as per physical therapy. OBJECTIVE: Physical Exam General: Adequately build 68 year-old female lying in bed in no apparent distress. HEENT: Normocephalic, atraumatic. Eyes: Anicteric sclerae, conjunctivae clear. ENT: Nasal septum midline, oral mucosa moist. Neck supple, no JVD noticed. Respiratory: Bilaterally clear breath sounds. No use of accessory muscles of respiration. No adventitious breath sounds. Cardiovascular: S1, S2 heard. Regular rate and rhythm. Abdomen: Soft, nontender, and nondistended. Bowel sounds positive in all 4 toro drants. Genitourinary: Deferred. Extremities: No cyanosis, no clubbing, no edema. Peripheral pulses palpable. Neurologic: The patient is awake, alert, and oriented. Skin: Normal skin turgor. No skin rashes. Labs & Vitals per chart ASSESSMENT & PLAN 68 year old female with comorbidities including HTN, type II DM, and nicotine use who came to the ER with chief complaint of slurred speech and left leg numbness and was admitted to inpatient setting for further treatment and e valuation. 1. Acute/early subacute right AKBAR territory non hemorrhagic ischemic infarct in the anterior medial frontal lobe. -Continue aspirin and statins. -PT/OT/ST evaluation. -Being followed by neurology. 2. Hypertension. -Continue antihypertensives. 3. DM type 2. .-Continue SSI with premeal and basal insulin. -HgB A1C 7.9. 4. Dyslipidemia. -Continue statins. 5. Nicotine use. -Cessation will be advised. 6. Fluids, electrolytes, and nutrition. -Low carbohydrate diet. 7. DVT prophylaxis. -Subcutaneous Lovenox. 8. Plan. -Continue aspirin and statins -Continue physical therapy and occupational therapy. -Discharge the patient home once clinically stable. -May move the patient to medical surgical floor. The patient was seen in collaboration with Dr. Barrett. Result Diagram: 01/05/19 0558 01/05/19 0558 Results 24hrs Laboratory Tests Test 01/04/19 17:03 01/04/19 19:50 01/04/19 21:23 01/05/19 02:19 Bedside Glucose 135 206 166 Urine Color STRAW Urine Clarity CLEAR Urine pH 5.0 Urine Specific 1.009 [place] Urine Ketones NEGATIVE Urine Nitrite NEGATIVE Urine Bilirubin NEGATIVE Urine Urobilinogen NEGATIVE Urine Leukocyte NEGATIVE Esterase Urine Microscopic 0 RBC Urine Microscopic 1 WBC Urine Hemoglobin 1+ H Urine Glucose 1+ H Urine Total Protein NEGATIVE Test 01/05/19 05:58 01/05/19 07:57 01/05/19 11:48 White Blood Count 10.5 # Red Blood Count 4.93 Hemoglobin 14.1 Hematocrit 43.3 Mean Corpuscular 87.8 Volume Mean Corpuscular 28.6 L Hemoglobin Mean Corpuscular 32.6 Hemoglobin Concent Red Cell 12.9 Distribution Width Platelet Count 233 Mean Platelet Volume 11.4 H Immature 0.200 Granulocytes % Neutrophils % 69.6 Lymphocytes % 18.6 Monocytes % 8.6 Eosinophils % 2.5 Basophils % 0.5 Nucleated Red Blood 0.0 Cells % Immature 0.020 Granulocytes # Neutrophils # 7.3 Lymphocytes # 2.0 Monocytes # 0.9 Eosinophils # 0.3 Basophils # 0.1 Nucleated Red Blood 0.0 Cells # Sodium Level 139 Potassium Level 3.7 Chloride Level 105 Carbon Dioxide Level 28 Anion Gap 6 Blood Urea Nitrogen 11 Creatinine 0.58 Est Glomerular > 60 Filtrat Rate mL/min Glucose Level 205 Calcium Level 9.2 Phosphorus Level 4.0 Magnesium Level 1.9 Bedside Glucose 189 276 H Exam/Review of Systems Exam Vitals Vital Signs Date Temp Pulse Resp B/P (MAP) Pulse Ox O2 O2 Flow FiO2 Time Delivery Rate 01/05/19 73 16:02 01/05/19 98.0 20 146/81 96 Room Air 15:34 (102) Intake and Output 01/04/19 01/04/19 01/05/19 1515:00 23:00 07:00 IntakeIntake Total 600 ml 350 ml BalanceBalance 600 ml 350 ml Results Results 24hrs Laboratory Tests Test 01/04/19 17:03 01/04/19 19:50 01/04/19 21:23 01/05/19 02:19 Bedside Glucose 135 206 166 Urine Color STRAW Urine Clarity CLEAR Urine pH 5.0 Urine Specific 1.009 [place] Urine Ketones NEGATIVE Urine Nitrite NEGATIVE Urine Bilirubin NEGATIVE Urine Urobilinogen NEGATIVE Urine Leukocyte NEGATIVE Esterase Urine Microscopic 0 RBC Urine Microscopic 1 WBC Urine Hemoglobin 1+ H Urine Glucose 1+ H Urine Total Protein NEGATIVE Test 01/05/19 05:58 01/05/19 07:57 01/05/19 11:48 White Blood Count 10.5 # Red Blood Count 4.93 Hemoglobin 14.1 Hematocrit 43.3 Mean Corpuscular 87.8 Volume Mean Corpuscular 28.6 L Hemoglobin Mean Corpuscular 32.6 Hemoglobin Concent Red Cell 12.9 Distribution Width Platelet Count 233 Mean Platelet Volume 11.4 H Immature 0.200 Granulocytes % Neutrophils % 69.6 Lymphocytes % 18.6 Monocytes % 8.6 Eosinophils % 2.5 Basophils % 0.5 Nucleated Red Blood 0.0 Cells % Immature 0.020 Granulocytes # Neutrophils # 7.3 Lymphocytes # 2.0 Monocytes # 0.9 Eosinophils # 0.3 Basophils # 0.1 Nucleated Red Blood 0.0 Cells # Sodium Level 139 Potassium Level 3.7 Chloride Level 105 Carbon Dioxide Level 28 Anion Gap 6 Blood Urea Nitrogen 11 Creatinine 0.58 Est Glomerular > 60 Filtrat Rate mL/min Glucose Level 205 Calcium Level 9.2 Phosphorus Level 4.0 Magnesium Level 1.9 Bedside Glucose 189 276 H Medications Medication Current Medications IV Flush (NS 3 ml) 3 ml PER PROTOCOL IV ; Start 01/03/19 at 23:30 Acetaminophen/ Hydrocodone Bitart ([place] (5/325)) 2 tab Q6H PRN PO .SEVERE PAIN 7-10; Start 01/03/19 at 23:30 Enoxaparin Sodium (Lovenox) 30 mg DAILY SC Last administered on 01/05/19at 10:08; Admin Dose 30 MG; Start 01/04/19 at 09:00 Diagnostic Test (Pha) (Accu-Chek) 1 ea 02 XX Last administered on 01/05/19at 02:39; Admin Dose 1 EA; Start 01/04/19 at 02:00 Insulin Glargine (Lantus) 16 units DAILY@2000 SC Last administered on 01/04/19at 21:39; Admin Dose 16 UNITS; Start 01/04/19 at 20:00 Insulin Aspart (Novolog Insulin Pen) 4 unit WITH MEALS SC Last administered on 01/05/19at 12:13; Admin Dose 4 UNIT; Start 01/04/19 at 07:55 Insulin Aspart (Novolog Insulin Pen) NOVOLOG *MILD* ALGORITHM WITH MEALS BEDTIME SC Last administered on 01/05/19at 12:14; Admin Dose 4 UNIT; Start 01/04/19 at 07:55 Miscellaneous Information 1 ea NOTE XX ; Start 01/03/19 at 23:45 Glucose (Glutose) 15 gm Q15M PRN PO DECREASED GLUCOSE; Start 01/03/19 at 23:45 Glucose (Glutose) 22.5 gm Q15M PRN PO DECREASED GLUCOSE; Start 01/03/19 at 23:45 Dextrose (D50w Syringe) 25 ml Q15M PRN IV DECREASED GLUCOSE; Start 01/03/19 at 23:45 Dextrose (D50w Syringe) 50 ml Q15M PRN IV DECREASED GLUCOSE; Start 01/03/19 at 23:45 Glucagon (Glucagen) 1 mg Q15M PRN IM DECREASED GLUCOSE; Start 01/03/19 at 23:45 Glucose (Glutose) 15 gm Q15M PRN BUCCAL DECREASED GLUCOSE; Start 01/03/19 at 23:45 Aspirin (Aspirin) 81 mg DAILY PO Last administered on 01/05/19at 09:17; Admin Dose 81 MG; Start 01/04/19 at 09:00 Atorvastatin Calcium (Lipitor) 80 mg HS PO Last administered on 01/04/19at 21:25; Admin Dose 80 MG; Start 01/04/19 at 21:00 Hydralazine HCl (Apresoline) 10 mg Q4H PRN IV ELEVATED SYSTOLIC BP; Start 01/04/19 at 18:00 Nitroglycerin (Nitroglycerin (Sl Tab) 0.4 Mg) 1 tab Q5M PRN SL ANGINA; Start 01/05/19 at 08:00 SLAVA PARKER NP Jan 05, 2019 16:18
[2019-01-05] MEDS: metFORMIN 500 MG TAB PO SCH (17:42)
[2019-01-05] MEDS: hydrALAzine 20 MG INJ IV PRN (20:18)
[2019-01-05] MEDS: ATORVASTATIN 80 MG TAB PO SCH (20:18)
[2019-01-05] MEDS: INSULIN GLARGINE [LANTus] (100 UNITS/ML) SYG SC SCH (20:27)
[2019-01-06] MEDS: ACCU-CHEK XX SCH (02:14)
[2019-01-06 02:15] VITALS: BP 153/69; PULSE 106; RESP 20
[2019-01-06 02:21] VITALS: BP 156/71
[2019-01-06 08:04] VITALS: BP 182/85; PULSE 77; RESP 20
[2019-01-06] MEDS: INSULIN ASPART [NOVOLOG] 3 ML PEN SC SCH ×4 (08:44→12:46)
[2019-01-06] MEDS: ENOXAPARIN 30 MG/0.3 ML SYG SC SCH (08:46)
[2019-01-06] MEDS: ASPIRIN 81 MG TAB PO SCH (08:46)
[2019-01-06] MEDS: metFORMIN 500 MG TAB PO SCH (08:46)
[2019-01-06] MEDS: hydrALAzine 20 MG INJ IV PRN (08:47)
[2019-01-06] MEDS ORDERED: LISINOPRIL 5 MG TAB PO SCH (10:00)
--- NOTE | 2019-01-06 10:15 | DS ---
Date/Time of Note Date/Time of Note DATE: 01/06/19 TIME: 10:13 Discharge Summary Admission/Discharge Info Admit Date/Time Jan 03, 2019 at 22:18 Discharge Date/Time Discharge Diagnosis 1. Acute/early subacute right AKBAR territory non hemorrhagic ischemic infarct in the anterior medial frontal lobe. 2. Hypertension. 3. DM type 2. Hgb A1C 7.9. 4. Dyslipidemia. 5. Nicotine use. Patient Condition: Stable Consults 1. Alison Price MD, Neurology. Procedures Brain MRI IMPRESSION: 1. Acute / early subacute right AKBAR territory non hemorrhagic ischemic infarct in the anterior medial frontal lobe. No significant mass effect or shift. 2. Moderate to marked chronic microvascular ischemic changes suggestive of sequelae of hypertension. Remote lacunar infarcts in the left basal ganglia and external capsule 3. Mild generalized volume loss. 2D Echocardiogram Conclusions: Normal left ventricular systolic function. Normal left ventricular cavity size. Normal left ventricular wall thickness. Ejection fraction is visually estimated at 55-60 %. Tissue Doppler/Mitral Doppler indices are consistent with impaired relaxation (Stage I diastolic dysfunction). Mild mitral leaflet calcification. Mild mitral annular calcification. Trace mitral regurgitation. Normal appearance of the tricuspid valve. Estimated peak PA systolic pressure 39 mmHg. There is mild tricuspid regurgitation. Trivial pericardial effusion. Hx of Present Illness This is a 68 year old female with comorbidities including HTN, type II DM, and nicotine use who came to the ER with chief complaint of slurred speech and left leg numbness and was admitted to inpatient setting for further treatment and evaluation. Hospital Course The patient's brain CT scan was negative for any acute findings. The patient's brain MRI showed acute/early subacute right AKBAR territory nonhemorrhagic ischemic infarct. The patient's bilateral carotid Doppler study was negative for any hemodynamically significant stenosis. The patient was maintained on aspirin and statins. Permissive hypertension was allowed for the first 48 hours. Physical therapy evaluation was ordered. The patient underwent multiple sessions of physical therapy with improvement in the patient's weakness. The patient was restarted on antihypertensives after 48 hours of the stroke. The patient has underlying diabetes mellitus type 2. The patient was on sliding scale insulin along with pre-meal insulin basal insulin. The patient's hemoglobin A1c was found to be 7.9. Upon discharge, she will be continued on metformin. The patient was started on metformin on 01/05/2019. The patient is a current nicotine user. The patient was advised multiple times on the importance of quitting the use of nicotine. The patient had a stable hospital course. The patient needs further physical therapy and this can be done as outpatient. Unfortunately, the patient's ins urance constraints do not allow for any physical therapy evaluation/sessions to be arranged as outpatient. The patient has good family support including help by family members. Therefore, the patient will have adequate help at home. A FWW and list of County clinics were provided to the patient. Discharge Instructions 1. Follow a low-cholesterol, low carbohydrate diet. 2. Take medications as per prescription. 3. Avoid using tobacco. 4. Please follow-up with your primary care physician in 2 weeks. If you do not have a primary care physician, please call Dr. Moncho Musa's office. 5. Please go to the nearest emergency room if you have any chest pain, focal weakness, speech disturbances, or any other unusual signs/symptoms. At this time I would like to thank all the consultants for seeing the patient and providing clinical recommendations. The patient was seen in collaboration with Dr. Barrett. Home Meds Active Scripts Metformin* (Glucophage*) 500 Mg Tab, 500 MG PO BID WITH MEALS, #60 TAB Prov:SLAVA PARKER DIRECTOR OF ELEMENTARY EDUCATION 01/05/19 Lisinopril* (Lisinopril*) 5 Mg Tablet, 5 MG PO DAILY, #30 TAB Prov:SLAVA PARKER NP 01/05/19 Aspirin (Aspirin) 81 Mg Chew, 81 MG PO DAILY, #30 TAB Prov:SLAVA PARKER DIRECTOR OF ELEMENTARY EDUCATION 01/05/19 Atorvastatin* (Atorvastatin*) 80 Mg Tablet, 80 MG PO HS, #30 TAB Prov:SLAVA PARKER DIRECTOR OF ELEMENTARY EDUCATION 01/05/19 Follow-up Plan The patient to follow-up with her primary care physician/[facility]. Primary Care Provider Care Physician No Primary Time spent on discharge: > 30 minutes Pending Labs Laboratory Tests Test 01/05/19 11:48 01/05/19 17:34 01/05/19 20:17 01/06/19 02:10 Bedside 276 151 194 216 Glucose mg/dL (70-220) mg/dL (70-220) mg/dL (70-220) mg/dL (70-220) Test 01/06/19 08:28 Bedside 179 Glucose mg/dL (70-220) SLAVA PARKER NP Jan 06, 2019 10:15
--- NOTE | 2019-01-06 14:23 | CONS ---
Assessment/Plan Assessment/Plan Hospital Course 68 F c/ Hx of tobacco dependence and DM2, who presents for evaluation of left leg > arm weakness...for which neurology is consulted. MRI brain confirmed an acute R AKBAR infarction.. CUS was without significant stenosis Echo is unrevealing. LDL 87 RPR neg; ESR neg P: Cont asa/lipitor daily for secondary prevention BP and other medical management per primary PT/OT/ST as necessary Smoking cessation Will follow Consultation Date/Type/Reason Admit Date/Time Jan 03, 2019 at 22:18 Type of Consult Neurology Requesting Provider: FABIAN DSOUZA MD Date/Time of Note DATE: 01/06/19 TIME: 14:23 24 HR Interval Summary Free Text/Dictation Continues medsurg monitoring. Pt states that she was up walking today. Awaiting discharge today. Exam Vital Signs Vitals Vital Signs Date Temp Pulse Resp B/P (MAP) Pulse Ox O2 O2 Flow FiO2 Time Delivery Rate 01/06/19 98.7 77 20 182/85 93 Room Air 08:04 (117) Intake and Output 01/05/19 01/05/19 01/06/19 1515:00 23:00 07:00 IntakeIntake Total 1000 ml BalanceBalance 1000 ml Exam PE: Gen Appearance: No Apparent Distress HEENT: Normocephalic Cardiovascular: Regular rate Abdomen: Soft Extremities: Dry NE: The patient was alert and oriented. Language was normal. Fund of knowledge was normal. Pupils were equal and reactive to light. There was no afferent pupillary defect. Visual nixon were normal. Funduscopic examination was limited. no nystagmus. Facial sensation was normal. Face was symmetric with normal strength. Hearing was intact. Palate movements were normal. Neck strength was normal. There was normal tongue bulk and speed of movement. Tone was normal. Muscle bulk was normal. I did not see fasciculations. Left leg was mildly weak. Vibration sensation was normal. Temperature and pinprick sensation was normal. Rapid alternating movements were normal. There was no dysmetria. There was no intention tremor. Gait was deferred due to bedrest. Arm and leg reflexes were asymmetric. Shafer's sign was absent. Plantar responses were difficult to assess. MONTRELL BURNETT NP Jan 06, 2019 14:23 ELMER MICHAEL Jan 06, 2019 15:57
== END 2019-01-06 15:15 | disposition home or self-care (01) | DRG 65 ==
LOC: E/R 20:27 → TEL 22:18 → CANRESERV 22:49 → TEL 01-04 20:57 → MS1 01-05 23:24
PROVIDERS: ADMIT Internal Medicine; ATTEND Internal Medicine
DX: I63.131 Cerebral infarction due to embolism of right carotid artery (principal); G81.94 Hemiplegia, unspecified affecting left nondominant side; E11.9 Type 2 diabetes mellitus without complications; I10 Essential (primary) hypertension; E78.5 Hyperlipidemia, unspecified; R47.81 Slurred speech; F17.200 Nicotine dependence, unspecified, uncomplicated; Z79.4 Long term (current) use of insulin; Z79.82 Long term (current) use of aspirin
CPT/HCPCS: 36415; 70450; 70551; 71045; 80048; 80053; 80061; 80307; 81001; 82962; 83036; 83735; 84100; 84484; 85025; 85610; 85651; 85730; 86592; 93005; 93306; 93880; 97116; 97161; 97530; J0360; J1650; J1815; J7030